=== PATIENT | female | born 1960 | race African-American/Black ===

== ENCOUNTER 2025-03-28 14:41 | Emergency (ER) | payer BC, MEDICARE, MEDICAID ==
[~2025-03-28] VITALS: Ht 170.2 cm; Wt 98.0 kg
[2025-03-28 14:42] VITALS: BP 126/66; PULSE 89; RESP 16; TEMP 37; O2SAT 100
== END 2025-03-28 15:40 | disposition left against medical advice (07) ==
LOC: ER 14:41
DX: R42 Dizziness and giddiness (principal)
CPT/HCPCS: 93005; 99281